=== PATIENT | male | born 1960 | race African-American/Black ===

== ENCOUNTER 2016-11-30 07:06 | Day surgery (SDC) | payer OTHER ==
--- NOTE | ~2016-11-30 | EGD ---
EGD REPORT [facility] [address] [place] [id number] NAME: DK ZARAGOZA : 56 STATUS : [facility]#: [id number] AGE: 56 ADM/REG DATE : 11/30/16 MR#: [id number] REPORT SERV DATE: 11/30/16 DICTATED BY: MATHEW HODGSON DATE: 11/30/16 REPORT STATUS : Draft TRANS[facility]IBED BY: [facility] DATE: 11/30/16 Endoscopy Center Patient Name: Dk Zaragoza Date of : 1960 Attending MD: SUSAN HODGSON MD Procedure Date No Time: 11/30/2016 Procedure: Colonoscopy Indications: Screening for colorectal malignant neoplasm, This is the patient's first colonoscopy Referring MD: MK ALARCON Medicines: See the Anesthesia note for documentation of the administered medications Complications: No immediate complications. Estimated blood loss: Minimal. Procedure: Pre-Anesthesia Assessment: - ASA Grade Assessment: III - A patient with severe systemic disease. - Prior to the procedure, a History and Physical was performed, and patient medications and allergies were reviewed. The patient's tolerance of previous anesthesia was also reviewed. The risks and benefits of the procedure and the sedation options and risks were discussed with the patient. All questions were answered, and informed consent was obtained. Prior Anticoagulants: The patient has taken no previous anticoagulant or antiplatelet agents. After reviewing the risks and benefits, the patient was deemed in satisfactory condition to undergo the procedure. After I obtained informed consent, the scope was passed under direct vision. Throughout the procedure, the patient's blood pressure, pulse, and oxygen saturations were monitored continuously. The PCF [id number] was introduced through the anus and advanced to the cecum, identified by appendiceal orifice and ileocecal valve. The ileocecal valve, appendiceal orifice and rectum were photographed. The entire colon was examined. The colonoscopy was performed without difficulty. The patient tolerated the procedure well. The quality of the bowel preparation was adequate. Findings: The perianal and digital rectal examinations were normal. A sessile polyp was found at the hepatic flexure. The polyp was 2 mm in size. The polyp was removed with a cold biopsy forceps. Resection and retrieval were complete. EGD REPORT [place] [id number] [place]. [address] NAME: DK ZARAGOZA : 56 STATUS : [facility] [place]#: [id number] AGE: 56 ADM/REG DATE : 11/30/16 MR#: [id number] REPORT SERV DATE: 11/30/16 DICTATED BY: MATHEW HODGSON DATE: 11/30/16 REPORT STATUS : Draft TRANSCRIBED BY: [facility] DATE: 11/30/16 Nine sessile polyps were found in the sigmoid colon. The polyps were 3 to 8 mm in size. These polyps were removed with a hot snare. Resection and retrieval were complete. Non-bleeding internal hemorrhoids were found during retroflexion and were Grade I (internal hemorrhoids that do not prolapse). No other significant abnormalities were identified in a careful examination of the remainder of the colon. Impression: - One 4 mm polyp at the hepatic flexure. Resected and retrieved. - Nine 3 to 8 mm polyps in the sigmoid colon. Resected and retrieved. - Non-bleeding internal hemorrhoids. Recommendation: - Patient has a contact number available for emergencies. The signs and symptoms of potential delayed complications were discussed with the patient. Return to normal activities tomorrow. Written discharge instructions were provided to the patient. - Regular diet. - Discharge patient to home. - Continue present medications. - Await pathology results. - Repeat colonoscopy for surveillance based on pathology results. Procedure Code(s): --- Professional --- 72979, Colonoscopy, flexible, proximal to splenic flexure; with removal of tumor(s), polyp(s), or other lesion(s) by snare technique 26405, 59, Colonoscopy, flexible, proximal to splenic flexure; with biopsy, single or multiple Diagnosis Code(s): --- Professional --- D12.5, Benign neoplasm of sigmoid colon D12.3, Benign neoplasm of transverse colon K64.0, First degree hemorrhoids Z12.11, Encounter for screening for malignant neoplasm of colon CPT copyright 2013 [employer]. All rights reserved. The codes documented in this report are preliminary and upon deliverer outside review may be revised to meet current compliance requirements. EGD REPORT [facility] [address] [id number] NAME: DK ZARAGOZA : 56 [place] : [place] [facility] [place]#: [id number] AGE: 56 ADM/REG DATE : 11/30/16 MR#: [id number] REPORT SERV DATE: 11/30/16 DICTATED BY: MATHEW HODGSON DATE: 11/30/16 REPORT STATUS : Draft TRANSCRIBED BY: [employer] DATE: 11/30/16 SUSAN HODGSON MD 11/30/2016 10:26 AM This report has been signed electronically. Number of Addenda: 0 Note Initiated On: 11/30/2016 9:34 AM Scope Withdrawal Time 0 hours 24 minutes 52 seconds [address] [id number]
[~2016-11-30 07:06] MED LIST: BETAP120 PO; COZAAR100 MG PO; GLUCPH PO; LIPITOR40 PO; LOFIB160 PO; MOBIC15 MG PO; NORV10 PO; SYMBICORT 160/41 INH INH
== END 2016-11-30 23:59 | disposition home health service (06) ==
LOC: DMU 07:06
PROVIDERS: Internal Medicine Gastroenterology
PROC: 0DBK8ZX Excision of Ascending Colon, Via Natural or Artificial Opening Endoscopic, Diagnostic (ICD-10-PCS; principal; 2016-11-30 09:00)
PROC: 0DBN8ZZ Excision of Sigmoid Colon, Via Natural or Artificial Opening Endoscopic (ICD-10-PCS; 2016-11-30 09:00)
DX: Z12.11 Encounter for screening for malignant neoplasm of colon (principal); D12.3 Benign neoplasm of transverse colon; K63.5 Polyp of colon; K64.0 First degree hemorrhoids; I10 Essential (primary) hypertension; J44.9 Chronic obstructive pulmonary disease, unspecified; M19.90 Unspecified osteoarthritis, unspecified site; E11.9 Type 2 diabetes mellitus without complications; E66.01 Morbid (severe) obesity due to excess calories; Z79.899 Other long term (current) drug therapy; Z86.010 Personal history of colon polyps; Z98.890 Other specified postprocedural states
CPT/HCPCS: 82962; 88305